=== PATIENT | male | born 1955 | race Caucasian/White ===

== ENCOUNTER 2017-09-15 06:43 | Emergency (ER) | payer MEDICAID ==
[~2017-09-15] VITALS: Ht 188 cm; Wt 82.0 kg
[~2017-09-15 06:43] MED LIST: ASPI81 PO; BUSP15 PO; FLUO-191 PO; LISI-660 PO; LURA40 PO; METO25 PO; RANO500T3 PO; SIMV-261 PO; ZIPR60CA2 PO
[2017-09-15] MEDS ORDERED: HYDR-4031 PO (06:53)
[2017-09-15] MEDS ORDERED: IPRATROPIUM BROMIDE 0.5 MG/2.5 ML NEB SOLUTION NEB ONE ×2 (06:57→07:15)
[2017-09-15] MEDS ORDERED: 0.9% SODIUM CHLORIDE 5 ML NEB SOLUTION NEB ONE (06:57)
[2017-09-15] MEDS ORDERED: ALBUTEROL SULFATE 2.5 MG/0.5 ML NEB SOLUTION NEB ONE ×3 (06:57→07:15)
[2017-09-15 07:12] LABS: BASOPHILS # (AUTO) 0.03 K/uL (0.00-0.20); BASOPHILS % (AUTO) 0.4 % (0.0-2.0); EOSINOPHILS # (AUTO) 0.15 K/uL (0.00-0.70); HEMATOCRIT 47.7 % (41-53); HEMOGLOBIN 15.8 g/dL (13.5-17.5); LYMPHOCYTES # (AUTO) 1.2 K/uL (1.0-4.8); LYMPHOCYTES % (AUTO) 15.3 % (22.0-44.0); MEAN CORPUSCULAR HGB CONC 33.2 G/dL (31.0-37.0); MEAN CORPUSCULAR VOLUME 84 fL (80-100); MONOCYTES # (AUTO) 0.7 K/uL (0.1-1.0); MONOCYTES % (AUTO) 8.3 % (2.0-9.0); NEUTROPHILS % (AUTO) 74.1 % (40.0-70.0); PLATELET COUNT (AUTO) 197 K/uL (150-450); RED BLOOD CELL COUNT(AUTO) 5.65 MIL/uL (4.50-5.90); RED CELL DISTRIBUTION WIDTH 14.3 % (11.5-14.5)
[2017-09-15] MEDS ORDERED: LORazepam 2 MG TABLET PO ONE (07:15)
[2017-09-15] MEDS ORDERED: GuaiFENesin/D-METHORPHAN [SUGAR-FREE] 200-20MG/10 ML SYRUP UDCUP PO ONE (07:15)
[2017-09-15] MEDS ORDERED: ASPIRIN 81 MG CHEWABLE TABLET PO ONE (07:15)
[2017-09-15 07:29] LABS: ANION GAP 10 mmol/L (8-16); CALCIUM, TOTAL 8.9 mg/dL (8.8-10.5); CARBON DIOXIDE 25 mmol/L (22-29); CHLORIDE 100 mmol/L (98-107); GLOMERULAR FILTR. RATE CALC > 60 mL/min (>60); GLUCOSE,RANDOM 105 mg/dL (70-110); POTASSIUM 3.2 mmol/L (3.5-5.1); SODIUM SERUM 135 mmol/L (136-145); UREA NITROGEN, BLOOD 14 mg/dL (7-18)
[2017-09-15 07:33] LABS: B-TYPE NATRIURETIC PEPTIDE 11 pg/mL (0-100)
[2017-09-15] MEDS ORDERED: BENZONATATE 100 MG CAPSULE PO ONE (07:45)
[2017-09-15 07:52] LABS: ALANINE AMINOTRANSFERASE 25 U/L (12-78); ALBUMIN 3.6 g/dL (3.4-5.0); ALKALINE PHOSPHATASE 68 U/L (46-116); ASPARTATE AMINOTRANSFERASE 21 U/L (15-37); CREATINE KINASE MB 1.9 ng/mL (0-5); CREATINE KINASE, TOTAL 157 U/L (39-308); TOTAL PROTEIN, SERUM 7.7 g/dL (6.4-8.2)
[2017-09-15] MEDS ORDERED: POTASSIUM CHLORIDE 20 MEQ ER TABLET PO ONE (08:45)
[2017-09-15] MEDS ORDERED: SODIUM CHLORIDE 0.9% 1,000 ML IV ONE (10:15)
[2017-09-15] MEDS ORDERED: MethylPREDNISolone SOD SUCC 125 MG/2 ML VIAL IVP ONE (10:45)
[2017-09-15] MEDS ORDERED: LEVOFLOXACIN 500 MG TABLET PO ONE (10:45)
[2017-09-15 13:15] VITALS: BP 118/84
== END 2017-09-15 13:28 | disposition home or self-care (01) ==
LOC: EMS 06:44
DX: J44.1 Chronic obstructive pulmonary disease with (acute) exacerbation (principal); F15.10 Other stimulant abuse, uncomplicated; F41.9 Anxiety disorder, unspecified; F32.9 Major depressive disorder, single episode, unspecified; E78.00 Pure hypercholesterolemia, unspecified; I10 Essential (primary) hypertension; F17.210 Nicotine dependence, cigarettes, uncomplicated
CPT/HCPCS: 36415; 71046; 80053; 82550; 82553; 83880; 84484; 85025; 93005; 94640; 96361; 96374; 99285; 99406; J2930; J7613

== ENCOUNTER 2017-09-15 15:15 | Inpatient (IN) | payer MEDICAID ==
[~2017-09-15] VITALS: Ht 172.7 cm; Wt 77.3 kg
[~2017-09-15 15:15] MED LIST changes: +HYDR-4031 PO
[2017-09-15 16:50] LABS: AMPHET/METH SCREEN,URINE POSITIVE (NEGATIVE); BARBITURATE SCREEN, URINE NEGATIVE (NEGATIVE); BENZODIAZEPINES SCREEN,URINE NEGATIVE (NEGATIVE); CANNABINOID SCREEN,URINE NEGATIVE (NEGATIVE); COCAINE SCREEN,URINE NEGATIVE (NEGATIVE); METHADONE SCREEN, URINE NEGATIVE (NEGATIVE); OPIATE SCREEN,URINE NEGATIVE (NEGATIVE); PHENCYCLIDINE SCREEN,URINE NEGATIVE (NEGATIVE)
[2017-09-15] MEDS ORDERED: LORazepam 2 MG/ML VIAL IM ONE (18:15)
[2017-09-15] MEDS ORDERED: HALOPERIDOL LACTATE 5 MG/ML VIAL IM ONE (18:15)
[2017-09-15] MEDS ORDERED: DiphenhydrAMINE HCL 50 MG/ML VIAL IM ONE (18:15)
[2017-09-15] MEDS ORDERED: HALOPERIDOL 5 MG TABLET PO PRN (18:30)
[2017-09-15] MEDS ORDERED: ZOLPIDEM TARTRATE 10 MG TABLET PO PRN (18:30)
[2017-09-16 07:59] LABS: CHOL/HDL RATIO 2.2 (4.2-7.3)
[2017-09-16] MEDS: FLUoxetine HCL 20 MG CAPSULE PO SCH (16:15)
[2017-09-16] MEDS: RisperiDONE 2 MG TABLET PO SCH (19:13)
[2017-09-16 20:48] VITALS: BP 138/97
[2017-09-17 08:07] VITALS: BP 127/85
[2017-09-17] MEDS: RisperiDONE 2 MG TABLET PO SCH ×2 (10:27→16:35)
[2017-09-17] MEDS: FLUoxetine HCL 20 MG CAPSULE PO SCH (10:28)
[2017-09-17 18:19] VITALS: BP 118/66
[2017-09-18 09:00] VITALS: BP 105/67
[2017-09-18] MEDS: RisperiDONE 2 MG TABLET PO SCH ×2 (09:09→17:37)
[2017-09-18] MEDS: FLUoxetine HCL 20 MG CAPSULE PO SCH (09:09)
[2017-09-18] MEDS: ALBUTEROL SULFATE HFA 90 MCG/PUFF 8 GM INHALER IH PRN (09:10)
[2017-09-18] MEDS: LORazepam 2 MG TABLET PO PRN ×2 (11:02→17:37)
[2017-09-18 17:00] VITALS: BP 116/83
[2017-09-19 08:00] VITALS: BP 109/76
[2017-09-19] MEDS: RisperiDONE 2 MG TABLET PO SCH ×2 (09:03→16:30)
[2017-09-19] MEDS: FLUoxetine HCL 20 MG CAPSULE PO SCH (09:03)
[2017-09-19] MEDS: ALBUTEROL SULFATE HFA 90 MCG/PUFF 8 GM INHALER IH PRN (09:03)
[2017-09-19] MEDS: LORazepam 2 MG TABLET PO PRN (09:03)
[2017-09-19 16:30] VITALS: BP 119/73
[2017-09-20 08:00] VITALS: BP 105/76
[2017-09-20] MEDS: RisperiDONE 2 MG TABLET PO SCH ×2 (09:00→16:38)
[2017-09-20] MEDS: LORazepam 2 MG TABLET PO PRN ×2 (09:00→16:39)
[2017-09-20] MEDS: ALBUTEROL SULFATE HFA 90 MCG/PUFF 8 GM INHALER IH PRN (09:00)
[2017-09-20] MEDS: FLUoxetine HCL 20 MG CAPSULE PO SCH (09:00)
[2017-09-20 16:49] VITALS: BP 135/84
[2017-09-20] MEDS ORDERED: POTASSIUM CHLORIDE 20 MEQ ER TABLET PO ONE (18:15)
[2017-09-21 06:30] LABS: BASOPHILS % (AUTO) 0.4 % (0.0-2.0); EOSINOPHILS % (AUTO) 2.2 % (1.0-6.0); HEMATOCRIT 45.3 % (41-53); HEMOGLOBIN 15.5 g/dL (13.5-17.5); LYMPHOCYTES # (AUTO) 1.6 K/uL (1.0-4.8); LYMPHOCYTES % (AUTO) 22.3 % (22.0-44.0); MEAN CORPUSCULAR HEMOGLOBIN 28.5 pg (26.0-34.0); MEAN CORPUSCULAR HGB CONC 34.1 G/dL (31.0-37.0); MEAN CORPUSCULAR VOLUME 84 fL (80-100); MONOCYTES # (AUTO) 0.8 K/uL (0.1-1.0); MONOCYTES % (AUTO) 11.3 % (2.0-9.0); NEUTROPHILS # (AUTO) 4.5 K/uL (1.8-7.7); NEUTROPHILS % (AUTO) 63.8 % (40.0-70.0); PLATELET COUNT (AUTO) 170 K/uL (150-450); RED BLOOD CELL COUNT(AUTO) 5.43 MIL/uL (4.50-5.90); RED CELL DISTRIBUTION WIDTH 14.5 % (11.5-14.5)
[2017-09-21 07:27] LABS: ALANINE AMINOTRANSFERASE 28 U/L (12-78); ALKALINE PHOSPHATASE 63 U/L (46-116); ANION GAP 8 mmol/L (8-16); ASPARTATE AMINOTRANSFERASE 18 U/L (15-37); BILIRUBIN,TOTAL 0.2 mg/dL (0.1-1.0); CALCIUM, TOTAL 8.5 mg/dL (8.8-10.5); CARBON DIOXIDE 25 mmol/L (22-29); CHLORIDE 108 mmol/L (98-107); CREATININE 0.82 mg/dL (0.60-1.30); GLOMERULAR FILTR. RATE CALC > 60 mL/min (>60); GLUCOSE,RANDOM 97 mg/dL (70-110); POTASSIUM 4.3 mmol/L (3.5-5.1); SODIUM SERUM 141 mmol/L (136-145); TOTAL PROTEIN, SERUM 6.3 g/dL (6.4-8.2); UREA NITROGEN, BLOOD 16 mg/dL (7-18)
[2017-09-21 08:00] VITALS: BP 104/63
[2017-09-21] MEDS: ALBUTEROL SULFATE HFA 90 MCG/PUFF 8 GM INHALER IH PRN (09:00)
[2017-09-21] MEDS: RisperiDONE 2 MG TABLET PO SCH ×2 (09:00→17:03)
[2017-09-21] MEDS: FLUoxetine HCL 20 MG CAPSULE PO SCH (09:00)
[2017-09-21] MEDS: LORazepam 2 MG TABLET PO PRN ×2 (09:00→17:03)
[2017-09-21 17:27] VITALS: BP 128/69
[2017-09-22 08:00] VITALS: BP 110/72
[2017-09-22] MEDS: ALBUTEROL SULFATE HFA 90 MCG/PUFF 8 GM INHALER IH PRN (09:03)
[2017-09-22] MEDS: LORazepam 2 MG TABLET PO PRN ×2 (09:04→17:23)
[2017-09-22] MEDS: RisperiDONE 2 MG TABLET PO SCH ×2 (09:04→17:23)
[2017-09-22] MEDS: FLUoxetine HCL 20 MG CAPSULE PO SCH (09:04)
[2017-09-22 16:57] VITALS: BP 121/74
[2017-09-22] MEDS ORDERED: IBUPROFEN 600 MG TABLET PO PRN (19:45)
[2017-09-23] MEDS: RisperiDONE 2 MG TABLET PO SCH (08:53)
[2017-09-23] MEDS: FLUoxetine HCL 20 MG CAPSULE PO SCH (08:53)
[2017-09-23] MEDS: LORazepam 2 MG TABLET PO PRN (09:11)
[2017-09-23 09:12] VITALS: BP 124/68
[2017-09-23] MEDS ORDERED: RISP2 PO (10:15)
[2017-09-23] MEDS: ALBUTEROL SULFATE HFA 90 MCG/PUFF 8 GM INHALER IH PRN (10:38)
== END 2017-09-23 13:00 | disposition home or self-care (01) | DRG 750 ==
LOC: EMS 15:16 → 3EC 09-16 16:35 → 3EI 09-17 19:05
PROVIDERS: ADMIT Psychiatry & Neurology Psychiatry; ATTEND Psychiatry & Neurology Psychiatry
DX: F25.0 Schizoaffective disorder, bipolar type (principal); R45.851 Suicidal ideations; I10 Essential (primary) hypertension; E78.00 Pure hypercholesterolemia, unspecified; F15.10 Other stimulant abuse, uncomplicated; F41.9 Anxiety disorder, unspecified; J44.9 Chronic obstructive pulmonary disease, unspecified; F60.2 Antisocial personality disorder; Z81.8 Family history of other mental and behavioral disorders; Z91.5 Personal history of self-harm; Z87.01 Personal history of pneumonia (recurrent); Z79.899 Other long term (current) drug therapy
CPT/HCPCS: 96372; 99291; J3535

== ENCOUNTER 2018-07-14 16:38 | Emergency (ER) | payer MEDICARE, MEDICAID ==
[~2018-07-14] VITALS: Ht 165.1 cm; Wt 63.6 kg
[~2018-07-14 16:38] MED LIST changes: -ASPI81 PO; -BUSP15 PO; -HYDR-4031 PO; -LISI-660 PO; -LURA40 PO; -METO25 PO; -RANO500T3 PO; +RISP2 PO; -SIMV-261 PO; -ZIPR60CA2 PO
[2018-07-14] MEDS ORDERED: IBUP200C5 PO (16:43)
[2018-07-14] MEDS ORDERED: KETOROLAC TROMETHAMINE 30 MG/ML VIAL IM ONE (17:30)
[2018-07-14] MEDS ORDERED: BACLOFEN 10 MG TABLET PO ONE (17:30)
[2018-07-14] MEDS ORDERED: RisperiDONE 1 MG TABLET PO ONE (19:00)
[2018-07-14] MEDS ORDERED: FLUoxetine HCL 20 MG CAPSULE PO ONE (19:00)
[2018-07-14 19:46] VITALS: BP 118/74
== END 2018-07-14 19:47 | disposition home or self-care (01) ==
LOC: EMS 16:39
DX: G62.9 Polyneuropathy, unspecified (principal); M54.5 Low back pain; G89.29 Other chronic pain; M25.552 Pain in left hip; I10 Essential (primary) hypertension; E78.00 Pure hypercholesterolemia, unspecified; J44.9 Chronic obstructive pulmonary disease, unspecified; F32.9 Major depressive disorder, single episode, unspecified; F41.9 Anxiety disorder, unspecified; F15.90 Other stimulant use, unspecified, uncomplicated
CPT/HCPCS: 96372; 99284; J1885